=== PATIENT | female | born 2000 | race Caucasian/White ===

== ENCOUNTER 2021-02-09 08:57 | Emergency (ER) | payer BC ==
[2021-02-09 10:59] LABS: HEMOGLOBIN 14.5 gm/dl (12.3-15.3); RED BLOOD COUNT 4.87 M/UL (4.00-5.10); WHITE BLOOD COUNT 11.1 K/UL (4.5-11.0)
[2021-02-09 11:19] LABS: BUN/CREATININE RATIO 14 (0-10)
== END 2021-02-09 13:00 | disposition home or self-care (01) ==
LOC: ER1 08:57
PROVIDERS: Nurse Practitioner
DX: R10.9 Unspecified abdominal pain (principal); R10.813 Right lower quadrant abdominal tenderness
CPT/HCPCS: 80053; 81001; 84703; 85025; 99284